=== PATIENT | female | born 1945 | race Hispanic/Latino ===

== ENCOUNTER → 2022-10-18 | Outpatient (CLI) | payer MEDICARE, OTHER ==
[~2022-10-18] MED LIST: IOHEXOL-350 50ML VIAL IV ONE
== END | disposition home or self-care (01) ==
LOC: CANPRECLI → RAH 07:50
PROVIDERS: ATTEND Otolaryngology Plastic Surgery within the Head & Neck
DX: E07.9 Disorder of thyroid, unspecified (principal); Q31.1 Congenital subglottic stenosis
CPT/HCPCS: 70492; Q9967

== ENCOUNTER → 2023-05-15 | Outpatient (CLI) | payer MEDICARE | END | disposition home or self-care (01) | LOC: RAH 14:17 | PROVIDERS: ATTEND Family Medicine | DX: N76.0 Acute vaginitis (principal); N77.1 Vaginitis, vulvitis and vulvovaginitis in diseases classified elsewhere; Z90.710 Acquired absence of both cervix and uterus | CPT/HCPCS: 76857 ==